=== PATIENT | male | born 1985 | race Caucasian/White ===

== ENCOUNTER 2018-08-23 08:54 | Emergency (ER) | payer SELFPAY ==
[~2018-08-23] VITALS: Ht 182.9 cm; Wt 135.0 kg
[2018-08-23] MEDS ORDERED: HYDROCODONE/ACETAMINOPHEN 5/325MG TABLET PO ONE (10:30)
[2018-08-23 11:52] VITALS: BP 134/84
== END 2018-08-23 11:34 | disposition home or self-care (01) ==
LOC: ER 08:54
DX: S22.31XA Fracture of one rib, right side, initial encounter for closed fracture (principal); R73.03 Prediabetes; F17.200 Nicotine dependence, unspecified, uncomplicated; V43.62XA Car passenger injured in collision with other type car in traffic accident, initial encounter; Y93.89 Activity, other specified; Y92.410 Unspecified street and highway as the place of occurrence of the external cause
CPT/HCPCS: 71101; 99283

== ENCOUNTER 2022-03-10 08:16 | Emergency (ER) | payer MEDICAID ==
[~2022-03-10] VITALS: Ht 182.9 cm; Wt 142.0 kg
[2022-03-10 08:23] VITALS: BP 136/78
[2022-03-10] MEDS ORDERED: LIDOCAINE HCL 1% 20ML VIAL (Pyxis) INJ INFIL ONE (09:30)
[2022-03-10] MEDS ORDERED: SULF1TAB48 MT (10:38)
== END 2022-03-10 10:49 | disposition home or self-care (01) ==
LOC: ER 09:08
DX: L03.011 Cellulitis of right finger (principal); F12.10 Cannabis abuse, uncomplicated
CPT/HCPCS: 10060; 99282

== ENCOUNTER 2023-04-17 21:36 | Emergency (ER) | payer MEDICAID, OTHER ==
[~2023-04-17] VITALS: Ht 182.9 cm; Wt 149.0 kg
[~2023-04-17 21:36] MED LIST: SULF1TAB48 MT
[2023-04-17 22:24] VITALS: BP 129/78; PULSE 92; RESP 18; TEMP 97.8; O2SAT 97
[2023-04-17 22:58] LABS: CLARITY URINE CLEAR (CLEAR); COLOR URINE YELLOW (YELLOW); GLUCOSE URINE NEGATIVE (NEGATIVE); KETONES URINE NEGATIVE (NEGATIVE); LEUKOCYTE ESTERASE URINE TRACE (NEGATIVE); NITRITE URINE NEGATIVE (NEGATIVE); OCCULT BLOOD URINE NEGATIVE (NEGATIVE); PROTEIN URINE NEGATIVE (NEGATIVE); SPECIFIC GRAVITY URINE 1.033 (1.005-1.030); UROBILINOGEN URINE 0.2 E.U./dL (0.2-1.0)
[2023-04-17 23:22] LABS: BACTERIA URINE 1+; RBC URINE 0-2 /hpf (0-2); SQUAMOUS EPITHELIAL CELL URINE FEW /lpf (RARE/1+)
== END 2023-04-17 23:30 | disposition home or self-care (01) ==
LOC: ER 21:53
DX: R30.0 Dysuria (principal); F12.90 Cannabis use, unspecified, uncomplicated; F98.8 Other specified behavioral and emotional disorders with onset usually occurring in childhood and adolescence
CPT/HCPCS: 81003; 99283